=== PATIENT | female | born 1995 | race Caucasian/White ===

== ENCOUNTER 2017-01-26 12:17 | Emergency (ER) | payer OTHER ==
[2017-01-26 12:44] VITALS: BP 137/83; RESP 18; TEMP 98.4
--- NOTE | 2017-01-26 15:53 | ED ---
Psych HPI - General Chief Complaint: Psychiatric Symptoms Stated Complaint: Mental Health Time Seen by Provider: 01/26/17 13:01 Source: patient Mode of arrival: ambulatory - History of Present Illness Initial Comments: Patient states that she needs a psychiatric evaluation. She has a history of bipolar. She denies any homicidal or suicidal ideation. She states that she is currently . Patient has not tried to hurt herself. She has not taken an overdose of medication. She has no chest pain, belly pain, back pain, weakness or trouble walking. - Related Data Home Medications Medication Instructions Recorded Confirmed No Known Home Medications [No 01/26/17 01/26/17 Known Home Medications] Allergies Allergy/AdvReac Type Severity Reaction Status Date / Time amoxicillin Allergy Unknown Verified 01/26/17 13:43 kiwi Allergy Unknown Verified 01/26/17 13:43 lithium Allergy Unknown Verified 01/26/17 13:43 methylphenidate Allergy Unknown Verified 01/26/17 13:43 [From Ritalin] Penicillins Allergy Unknown Verified 01/26/17 13:43 Beef Containing Products AdvReac Verified 01/26/17 13:43 [Beef] Pork/Porcine Containing AdvReac Verified 01/26/17 13:43 Products [Pork] Review of Systems ROS Statement: Those systems with pertinent positive or pertinent negative responses have been documented in the HPI. ROS Other: All systems not noted in ROS Statement are negative. Past Medical History Past Medical History: No Reported History History of Any Multi-Drug Resistant Organisms: None Reported Past Surgical History: No Surgical Hx Reported Past Psychological History: Anxiety, Bipolar, Depression Smoking Status: Never smoker Past Alcohol Use History: None Reported Past Drug Use History: None Reported General Exam Limitations: no limitations General appearance: alert, in no apparent distress Head exam: Present: atraumatic, normocephalic, normal inspection Eye exam: Present: normal appearance, PERRL, EOMI. Absent: scleral icterus, conjunctival injection, periorbital swelling ENT exam: Present: normal exam, mucous membranes moist Neck exam: Present: normal inspection. Absent: tenderness, meningismus, lymphadenopathy Respiratory exam: Present: normal lung sounds bilaterally. Absent: respiratory distress, wheezes, rales, rhonchi, stridor Cardiovascular Exam: Present: regular rate, normal rhythm, normal heart sounds. Absent: systolic murmur, diastolic murmur, rubs, gallop, clicks GI/Abdominal exam: Present: soft, normal bowel sounds. Absent: distended, tenderness, guarding, rebound, rigid Extremities exam: Present: normal inspection, full ROM, normal capillary refill. Absent: tenderness, pedal edema, joint swelling, calf tenderness Back exam: Present: normal inspection Neurological exam: Present: alert, oriented X3, CN II-XII intact Psychiatric exam: Present: normal affect, normal mood Skin exam: Present: warm, dry, intact, normal color. Absent: rash Course Vital Signs 01/26/17 12:40 Temperature 98.4 F Pulse Rate 89 Respiratory 18 Rate Blood Pressure 137/83 O2 Sat by Pulse 100 Oximetry Medical Decision Making - Medical Decision Making Patient is requesting psychiatric evaluation. Her physical exam is benign. Vital signs are normal. Patient was a valid by psychiatry. They do not feel she is a danger to herself or anybody else. She is stable for outpatient follow -up. Disposition Clinical Impression: Bipolar disorder Disposition: HOME SELF-CARE Condition: Good Instructions: Bipolar Disorder (ED) Time of Disposition: 15:53
[2017-01-26 16:18] VITALS: PULSE 88
== END 2017-01-26 16:18 | disposition home or self-care (01) ==
LOC: EC 12:17
DX: F31.9 Bipolar disorder, unspecified (principal); F41.9 Anxiety disorder, unspecified; Z88.0 Allergy status to penicillin; Z91.018 Allergy to other foods; Z88.8 Allergy status to other drugs, medicaments and biological substances
CPT/HCPCS: 82075; 99284

== ENCOUNTER 2018-02-27 13:46 | Emergency (ER) | payer OTHER ==
[2018-02-27 14:05] VITALS: RESP 18
--- NOTE | 2018-02-27 15:04 | ED ---
General Adult HPI - General Chief complaint: Chest Pain Stated complaint: Chest pain/lightheaded Time Seen by Provider: 02/27/18 14:56 Source: patient, RN notes reviewed, old records reviewed Mode of arrival: ambulatory Limitations: no limitations - History of Present Illness Initial comments: 22 female presenting for evaluation of left-sided chest pain. Patient's pain is sharp and intermittent in nature. Patient denies pain with movement. Pain is been present for the past one month. Patient attributes her pain to a side effect from her implantable control which was placed approximately 6 weeks ago. She states she does have some dyspnea associated with this pain. She is able to point to one spot where it hurts and according to her it is tender in this location. Pain is sharp and lasts 3-5 minutes with each episode occurring approximately 5 times daily. No abdominal pain, no nausea vomiting or diarrhea. No symptoms in between episodes. - Related Data Home Medications Medication Instructions Recorded Confirmed Ziprasidone [Geodon] 40 mg PO HS 02/27/18 02/27/18 Previous Rx's Medication Instructions Recorded Ibuprofen [Motrin] 600 mg PO Q8HR PRN #24 tab 02/27/18 Allergies Allergy/AdvReac Type Severity Reaction Status Date / Time amoxicillin Allergy Unknown Verified 02/27/18 14:20 kiwi Allergy Unknown Verified 02/27/18 14:20 lithium Allergy Unknown Verified 02/27/18 14:20 methylphenidate Allergy Unknown Verified 02/27/18 14:20 [From Ritalin] Penicillins Allergy Unknown Verified 02/27/18 14:20 Beef Containing Products AdvReac Unknown Verified 02/27/18 14:20 [Beef] Childhood Pork/Porcine Containing AdvReac Unknown Verified 02/27/18 14:20 Products [Pork] Review of Systems ROS Statement: Those systems with pertinent positive or pertinent negative responses have been documented in the HPI. ROS Other: All systems not noted in ROS Statement are negative. Past Medical History Past Medical History: No Reported History History of Any Multi-Drug Resistant Organisms: None Reported Past Surgical History: No Surgical Hx Reported Past Psychological History: Anxiety, Bipolar, Depression Smoking Status: Never smoker Past Alcohol Use History: None Reported Past Drug Use History: None Reported General Exam Limitations: no limitations General appearance: alert, in no apparent distress Head exam: Present: atraumatic, normocephalic Eye exam: Present: normal appearance, PERRL ENT exam: Present: normal exam Neck exam: Present: normal inspection. Absent: tenderness, meningismus Respiratory exam: Present: normal lung sounds bilaterally, chest wall tenderness (Left anterior chest wall tenderness). Absent: respiratory distress , wheezes Cardiovascular Exam: Present: regular rate, normal rhythm GI/Abdominal exam: Present: soft. Absent: distended, tenderness Extremities exam: Present: normal inspection, normal capillary refill. Absent: pedal edema, calf tenderness Neurological exam: Present: alert, oriented X3, CN II-XII intact. Absent: motor sensory deficit Psychiatric exam: Present: normal affect, normal mood Skin exam: Present: warm, dry, intact. Absent: cyanosis, diaphoretic Course Vital Signs 02/27/18 14:03 Temperature 98.4 F Pulse Rate 89 Respiratory 18 Rate Blood Pressure 157/90 O2 Sat by Pulse 98 Oximetry EKG Findings - EKG Comments: EKG Findings:: EKG: Sinus rhythm with sinus arrhythmia, ventricular rate 69, [place] interval 148, QRS duration 90, QTC 424, no signs of ischemia Medical Decision Making - Medical Decision Making 22-year-old female presenting with sharp left-sided chest pain. Pain is reproducible on exam. EKG nonischemic. Laboratory studies reveal normal CBC, normal CMP, troponin and d-dimer are negative. Chest x-ray negative for acute findings. Patient will be treated with Motrin. She will follow-up with primary care physician and return with worsening or changing symptoms. - Lab Data Result diagrams: 02/27/18 14:53 02/27/18 14:53 Lab Results 02/27/18 02/27/18 02/27/18 Range/Units 14:53 14:53 14:53 WBC 7.2 (3.8-10.6) k/uL RBC 4.82 (3.80-5.40) m/uL Hgb 13.5 (11.4-16.0) gm/dL Hct 39.0 (34.0-46.0) % MCV 81.0 (80.0-100.0) fL MCH 28.0 (25.0-35.0) pg MCHC 34.5 (31.0-37.0) g/dL RDW 12.4 (11.5-15.5) % Plt Count 252 (150-450) k/uL Neutrophils % 53 % Lymphocytes % 39 % Monocytes % 5 % Eosinophils % 1 % Basophils % 1 % Neutrophils # 3.8 (1.3-7.7) k/uL Lymphocytes # 2.8 (1.0-4.8) k/uL Monocytes # 0.4 (0-1.0) k/uL Eosinophils # 0.1 (0-0.7) k/uL Basophils # 0.0 (0-0.2) k/uL D-Dimer (<0.60) mg/L FEU Sodium 138 (137-145) mmol/L Potassium 4.1 (3.5-5.1) mmol/L Chloride 102 (98-107) mmol/L Carbon Dioxide 21 L (22-30) mmol/L Anion Gap 15 mmol/L BUN 11 (7-17) mg/dL Creatinine 0.68 (0.52-1.04) mg/dL Est GFR (CKD-EPI)AfAm >90 (>60 ml/min/1.73 sqM) Est GFR (CKD-EPI)NonAf >90 (>60 ml/min/1.73 sqM) Glucose 81 (74-99) mg/dL Calcium 9.6 (8.4-10.2) mg/dL Total Bilirubin 0.7 (0.2-1.3) mg/dL AST 13 L (14-36) U/L ALT 21 (9-52) U/L Alkaline Phosphatase 47 (38-126) U/L Total Creatine Kinase 72 (30-135) U/L CK-MB (CK-2) 0.4 (0.0-2.4) ng/mL CK-MB (CK-2) Rel Index 0.6 Troponin I <0.012 (0.000-0.034) ng/mL Total Protein 7.1 (6.3-8.2) g/dL Albumin 4.6 (3.5-5.0) g/dL Urine HCG, Qual (Not Detectd) 02/27/18 02/27/18 Range/Units 14:53 15:01 WBC (3.8-10.6) k/uL RBC (3.80-5.40) m/uL Hgb (11.4-16.0) gm/dL Hct (34.0-46.0) % MCV (80.0-100.0) fL MCH (25.0-35.0) pg MCHC (31.0-37.0) g/dL RDW (11.5-15.5) % Plt Count (150-450) k/uL Neutrophils % % Lymphocytes % % Monocytes % % Eosinophils % % Basophils % % Neutrophils # (1.3-7.7) k/uL Lymphocytes # (1.0-4.8) k/uL Monocytes # (0-1.0) k/uL Eosinophils # (0-0.7) k/uL Basophils # (0-0.2) k/uL D-Dimer <0.17 (<0.60) mg/L FEU Sodium (137-145) mmol/L Potassium (3.5-5.1) mmol/L Chloride (98-107) mmol/L Carbon Dioxide (22-30) mmol/L Anion Gap mmol/L BUN (7-17) mg/dL Creatinine (0.52-1.04) mg/dL Est GFR (CKD-EPI)AfAm (>60 ml/min/1.73 sqM) Est GFR (CKD-EPI)NonAf (>60 ml/min/1.73 sqM) Glucose (74-99) mg/dL Calcium (8.4-10.2) mg/dL Total Bilirubin (0.2-1.3) mg/dL AST (14-36) U/L ALT (9-52) U/L Alkaline Phosphatase (38-126) U/L Total Creatine Kinase (30-135) U/L CK-MB (CK-2) (0.0-2.4) ng/mL CK-MB (CK-2) Rel Index Troponin I (0.000-0.034) ng/mL Total Protein (6.3-8.2) g/dL Albumin (3.5-5.0) g/dL Urine HCG, Qual Not Detected (Not Detectd) Disposition Clinical Impression: Costalchondritis Disposition: HOME SELF-CARE Condition: Good Instructions: Costochondritis (ED) Prescriptions: Ibuprofen [Motrin] 600 mg PO Q8HR PRN #24 tab PRN Reason: Pain Is patient prescribed a controlled substance at d/c from ED?: No Referrals: Francisco Whitfield MD [Primary Care Provider] - 1-2 days Time of Disposition: 16:05
[2018-02-27 15:15] LABS: ALT 21 U/L (9-52); AST 13 U/L (14-36); Albumin 4.6 g/dL (3.5-5.0); Alkaline Phosphatase 47 U/L (38-126); Anion Gap 15 mmol/L; Blood Urea Nitrogen 11 mg/dL (7-17); Calcium 9.6 mg/dL (8.4-10.2); Carbon Dioxide 21 mmol/L (22-30); Chloride 102 mmol/L (98-107); Glucose 81 mg/dL (74-99); Potassium 4.1 mmol/L (3.5-5.1); Sodium 138 mmol/L (137-145); Total Bilirubin 0.7 mg/dL (0.2-1.3); Total Protein 7.1 g/dL (6.3-8.2)
[2018-02-27 15:17] LABS: Basophils % (A) 1 %; Eosinophils # (A) 0.1 k/uL (0-0.7); Eosinophils % (A) 1 %; HGB 13.5 gm/dL (11.4-16.0); Lymphocytes # (A) 2.8 k/uL (1.0-4.8); Lymphocytes % (A) 39 %; MCHC 34.5 g/dL (31.0-37.0); Mean Platelet Volume 8.9; Monocytes # (A) 0.4 k/uL (0-1.0); Monocytes % (A) 5 %; Neutrophils # (A) 3.8 k/uL (1.3-7.7); Neutrophils % (A) 53 %; Platelet Count 252 k/uL (150-450); RBC 4.82 m/uL (3.80-5.40); RDW 12.4 % (11.5-15.5); WBC 7.2 k/uL (3.8-10.6)
[2018-02-27 15:27] LABS: Creatine Kinase 72 U/L (30-135)
--- NOTE | 2018-02-27 15:32 | XR ---
EXAMINATION TYPE: XR chest 2V DATE OF EXAM: 02/27/2018 COMPARISON: NONE HISTORY: Chest pain TECHNIQUE: Frontal and lateral views of the chest are obtained. FINDINGS: There is no focal air space opacity, pleural effusion, or pneumothorax seen. The cardiac silhouette size is within normal limits. Suspect mild spinal curvature. The osseous structures are i ntact. IMPRESSION: No acute cardiopulmonary process.
[2018-02-27 15:39] LABS: Creatine Kinase MB 0.4 ng/mL (0.0-2.4); Troponin I <0.012 ng/mL (0.000-0.034)
[2018-02-27 16:15] VITALS: BP 118/75; PULSE 93; TEMP 97.2
== END 2018-02-27 16:14 | disposition home or self-care (01) ==
LOC: EC 13:46
DX: M94.0 Chondrocostal junction syndrome [Tietze] (principal); F31.9 Bipolar disorder, unspecified; Z88.0 Allergy status to penicillin; Z88.8 Allergy status to other drugs, medicaments and biological substances; Z91.018 Allergy to other foods; Z91.048 Other nonmedicinal substance allergy status; Z79.899 Other long term (current) drug therapy
CPT/HCPCS: 36415; 71046; 80053; 81025; 82550; 82553; 84484; 85025; 85379; 93005; 99285

== ENCOUNTER 2019-02-03 16:37 | Emergency (ER) | payer OTHER ==
[2019-02-03 16:45] VITALS: RESP 18
--- NOTE | 2019-02-03 17:02 | ED ---
General Adult HPI - General Chief complaint: Extremity Injury, Lower Stated complaint: Ankle Injury Time Seen by Provider: 02/03/19 16:47 Source: patient Mode of arrival: ambulatory Limitations: no limitations - History of Present Illness Initial comments: Dictation was produced using [employer] dictation software. please excuse any gramma tical, word or spelling errors. Chief Complaint: 23-year-old female presents with chief complaint of left ankle pain. History of Present Illness: Patient 23-year-old female. She states that several hours earlier today she twisted her ankle. She states she twisted her ankle after her foot got caught under a broomstick. Patient states that her leg feels like it twisted. Patient was an Sun[place] after the incident. She is concerned that maybe she fractured her ankle. She reports tenderness to the posterior heel and his fibula. She is 27 weeks . The ROS documented in this emergency department record has been reviewed and confirmed by me. Those systems with pertinent positive or negative responses have been documented in the HPI. All other systems are other negative and/or noncontributory. PHYSICAL EXAM: General Impression: Alert and oriented x3, not in acute distress HEENT: Normocephalic atraumatic, extra-ocular movements intact, pupils equal and reactive to light bilaterally, mucous membranes moist. Cardiovascular: Heart regular rate and rhythm, S1&S2 audible, no murmurs, rubs or gallops Chest: Lungs clear to auscultation bilaterally, no rhonchi, no wheeze, no rales Abdomen: Bowel sounds present, abdomen soft, non-tender, non-distended, no organomegaly Musculoskeletal: Pulses present and equal in all extremities, no peripheral edema Left ankle: Tenderness to palpation of the distal fibular tip and distal insertion site of the Achilles, no ecchymoses Motor: no focal deficits noted Neurological: CN II-XII grossly intact, no focal motor or sensory deficits noted Skin: Intact with no visualized rashes Psych: Normal affect and mood ED course: 23-year-old female presents with left ankle pain. Patient is 27 weeks . Upon arrival are within acceptable limits. Ankle x-ray is unremarkable. Patient able to ambulate however with slight limp. Patient clinical presentation consistent with ankle sprain. Patient told to rest ice and elevate the left lower extremity. Patient told to take Tylenol when necessary pain. She is otherwise advised to follow-up with primary care physician upon discharge. - Related Data Home Medications Medication Instructions Recorded Confirmed Cae-[id number]-[id number] Acid 1 cap PO DAILY 02/03/19 02/03/19 [-U Capsule (formulary)] Allergies Allergy/AdvReac Type Severity Reaction Status Date / Time amoxicillin Allergy Unknown Verified 02/03/19 17:19 kiwi Allergy Unknown Verified 02/03/19 17:19 lithium Allergy Unknown Verified 02/03/19 17:19 methylphenidate Allergy Unknown Verified 02/03/19 17:19 [From Ritalin] Penicillins Allergy Unknown Verified 02/03/19 17:19 Beef Containing Products AdvReac Unknown Verified 02/03/19 17:19 [Beef] Childhood Pork/Porcine Containing AdvReac Unknown Verified 02/03/19 17:19 Products [Pork] Review of Systems ROS Statement: Those systems with pertinent positive or pertinent negative responses have been documented in the HPI. ROS Other: All systems not noted in ROS Statement are negative. Past Medical History Past Medical History: No Reported History Additional Past Medical History / Comment(s): patient is supposed to get a breast biopsy with Dr. Infante 02-14-19 History of Any Multi-Drug Resistant Organisms: None Reported Past Surgical History: No Surgical Hx Reported Past Psychological History: Anxiety, Bipolar, Depression Smoking Status: Never smoker Past Alcohol Use History: None Reported Past Drug Use History: None Reported General Exam Limitations: no limitations Course Vital Signs 02/03/19 16:42 Temperature 98.3 F Pulse Rate 77 Respiratory 18 Rate Blood Pressure 125/77 O2 Sat by Pulse 99 Oximetry Disposition Clinical Impression: Ankle sprain Disposition: HOME SELF-CARE Condition: Good Instructions (If sedation given, give patient instructions): Ankle Sprain (ED) Is patient prescribed a controlled substance at d/c from ED?: No Referrals: Francisco Whitfield MD [Primary Care Provider] - 1-2 days Time of Disposition: 17:43
--- NOTE | 2019-02-03 17:34 | XR ---
Left ankle HISTORY: Trauma and pain 3 views of the left ankle Bone mineralization, joint spaces and alignment are maintained. There is mild soft tissue swelling. IMPRESSION: No fracture or dislocation.
[2019-02-03 17:59] VITALS: BP 109/81; PULSE 89; TEMP 98.8
== END 2019-02-03 17:59 | disposition home or self-care (01) ==
LOC: EC 16:37
DX: O9A.212 Injury, poisoning and certain other consequences of external causes complicating pregnancy, second trimester (principal); S93.402A Sprain of unspecified ligament of left ankle, initial encounter; Z88.0 Allergy status to penicillin; Z88.8 Allergy status to other drugs, medicaments and biological substances; Z91.018 Allergy to other foods; Z3A.27 27 weeks gestation of pregnancy; X50.1XXA Overexertion from prolonged static or awkward postures, initial encounter
CPT/HCPCS: 99283

== ENCOUNTER → 2019-02-14 | Outpatient (CLI) | payer OTHER ==
[2019-02-14 14:00] VITALS: BP 118/67; PULSE 66; RESP 16; TEMP 97.4; BMI 24.0
--- NOTE | 2019-02-14 14:25 | P.GSHP ---
History of Present Illness H&P Date: 02/14/19 Chief Complaint: breast pain The patient is a 23 year old white female, who is 29 week . She noted the a swelling in her left breast about months ago. At that time she also had bloody nipple discharge, and redness and pain of her left breast. She was treated with antibiotics and the bloody discharge and redness resolved. The pain which had been a 8 is now rated as a 3. The pain in intermittent. The patient had an ultrasound performed on . The ultrasound revealed a diffuse heterogenicity over the area of concern. The patient states the swelling is improved, but has not gone away. She was treated for what was believed to be a nonlactating mastitis. She did not have any fever or chills. She took clindamycin. The patient does not drink any caffeinated beverages. She does not smoke is not exposed to secondhand smoke. And she does not eat large quantities of chocolate. She had no trauma to the breast. She has had no surgery to the breast. She lost 150 pounds from the age of 16. Family History: mother: leukemia maternal aunt: of breast cancer at 35 paternal uncle: prostate Hormonal History: menarche: 9 3 pregnancies, one miscarriage, presently 29 weeks , first live at the age of 21, breast fed: Negative 29 weeks BCP: 3 months hormones: none Past medical history: 1. Bipolar Past surgical history: 1. 2. Ankle and knee surgery Social History: smoke: none alcohol: none drugs: none - Constitutional Constitutional: Denies chills, Denies fever - EENT Comment: wears glasses Eyes: denies blurred vision, denies pain Ears: deny: decreased hearing, tinnitus Ears, nose, mouth and throat: Denies headache, Denies sore throat - Breasts Breasts: bilateral: as per HPI - Cardiovascular Cardiovascular: Denies chest pain, Denies shortness of breath - Respiratory Respiratory: Denies cough, Denies 7 - Gastrointestinal Gastrointestinal: Reports constipation, Reports nausea, Denies abdominal pain, Denies diarrhea, Denies vomiting - Genitourinary (Female) Genitourinary: Denies dysuria, Denies hematuria - Menstruation Comment: - Musculoskeletal Musculoskeletal: Denies myalgias - Integumentary Integumentary: Denies pruritus, Denies rash - Neurological Neurological: Denies numbness, Denies weakness - Psychiatric Comment: PTSD, bipolar Psychiatric: Reports anxiety, Reports depression - Endocrine Endocrine: Denies fatigue, Denies weight change - Hematologic/Lymphatic Comment: none - Allergic/Immunologic Comment: PCN, amoxicillin, kiwi, lithium, adderol, methylphenidate Past Medical History Past Medical History: No Reported History Additional Past Medical History / Comment(s): patient is supposed to get a breast biopsy with Dr. Infante 02-14-19 History of Any Multi-Drug Resistant Organisms: None Reported Past Surgical History: No Surgical Hx Reported Past Psychological History: Anxiety, Bipolar, Depression Smoking Status: Never smoker Past Alcohol Use History: None Reported Past Drug Use History: None Reported Medications and Allergies Home Medications Medication Instructions Recorded Confirmed Type Kdg-[id number]-Govbx Acid 1 cap PO DAILY 02/03/19 02/03/19 History [-U Capsule (formulary)] Allergies Allergy/AdvReac Type Severity Reaction Status Date / Time amoxicillin Allergy Unknown Verified 02/03/19 17:19 kiwi Allergy Unknown Verified 02/03/19 17:19 lithium Allergy Unknown Verified 02/03/19 17:19 methylphenidate Allergy Unknown Verified 02/03/19 17:19 [From Ritalin] Penicillins Allergy Unknown Verified 02/03/19 17:19 Beef Containing Products AdvReac Unknown Verified 02/03/19 17:19 [Beef] Childhood Pork/Porcine Containing AdvReac Unknown Verified 02/03/19 17:19 Products [Pork] Surgical - Exam - General obese - Eyes normal ocular movement - ENT no hearing loss, no congestion - Neck no masses, trachea midline - Respiratory normal respiratory effort, clear to auscultation - Cardiovascular Rhythm: regular Heart Sounds: normal: S1, S2 - Abdomen gravid uterus Abdomen: soft, non tender, no guarding, no rigid, no rebound - Integumentary no abnormal pigmentation - Neurologic no disoriented, no combative - Musculoskeletal normal gait, normal posture - Psychiatric oriented to time, oriented to person, oriented to place, speech is normal, memory intact breast exam: right breast: Multi-positional exam fibrocystic changes/changes of no dominant masses or nodules of concern, no nipple discharge of concern Right axilla: No adenopathy of concern Left breast: Multi-positional exam no dominant masses or nodules of concern, changes of , fibrocystic changes, no discrete dominant masses or nodules of concern Left axilla: Tenderness to palpation but no discrete adenopathy of concern, family speech appears to be somewhat diffuse which was also identified on ultrasound Results Ultrasound results reviewed Assessment and Plan Assessment: Impression: 1. Left breast fullness/mastitis resolved 2. Left axillary fullness related to probable mastitis 3. 29 weeks 4. Bipolar 5. Resolved nonlactating mastitis 6. Mastodynia largely resolved The patient is a 23-year-old white female who has been treated for nonlactating mastitis. She is a good treatment resolution with the clindamycin. An ultrasound had been performed which revealed an area of heterogenicity in the left axilla and for which biopsy was recommended. The patient will be recommended to undergo ultrasound-guided core biopsy of the left axillary abnormal tissue. It may be that since the mastitis has largely resolved with we will not find anything and she will not have to have the biopsy performed. Plan: 1. Repeat left axillary ultrasound with core biopsy of lesion of concern identified 2. Continued treatment of prior medical legal investigator 3. Medical management of medical conditions 4. Follow-up after ultrasound-guided biopsy CC: Jasvir Rodriguez
== END | disposition home or self-care (01) ==
LOC: WWCWWP 13:39
PROVIDERS: ATTEND Surgery
DX: Z53.9 Procedure and treatment not carried out, unspecified reason (principal)

== ENCOUNTER 2019-02-28 09:00 | Day surgery (SDC) | payer OTHER ==
[2019-02-28 09:46] VITALS: BP 117/56; PULSE 79; RESP 18; TEMP 98.1
--- NOTE | 2019-02-28 11:59 | US ---
Discontinued axillary biopsy HISTORY: Left axillary swelling Ultrasound performed of the left axilla. A discrete mass was not identified. IMPRESSION: Discontinued biopsy. No discrete mass was identified. Follow-up as indicated, manage roslyn ent clinically. Consider lipoma, MRI with overlying marker could be performed for increased character ization.
== END 2019-02-28 10:22 | disposition home or self-care (01) ==
LOC: RADPROMAIN 09:00
PROVIDERS: ATTEND Surgery
DX: R59.9 Enlarged lymph nodes, unspecified (principal); Z53.8 Procedure and treatment not carried out for other reasons; R92.8 Other abnormal and inconclusive findings on diagnostic imaging of breast; Z80.3 Family history of malignant neoplasm of breast
CPT/HCPCS: 76536

== ENCOUNTER 2020-07-10 15:07 | Emergency (ER) | payer OTHER ==
[2020-07-10 15:25] VITALS: RESP 18; TEMP 98.3
[2020-07-10] MEDS ORDERED: SODIUM CHLORIDE 0.9% 1,000 ML IV ONE (16:06)
[2020-07-10 16:37] LABS: Basophils # (A) 0.1 k/uL (0-0.2); Basophils % (A) 1 %; Eosinophils # (A) 0.2 k/uL (0-0.7); Eosinophils % (A) 2 %; HCT 45.1 % (34.0-46.0); HGB 14.8 gm/dL (11.4-16.0); Lymphocytes # (A) 2.8 k/uL (1.0-4.8); Lymphocytes % (A) 39 %; MCH 27.7 pg (25.0-35.0); MCHC 32.8 g/dL (31.0-37.0); MCV 84.6 fL (80.0-100.0); Mean Platelet Volume 8.4; Monocytes # (A) 0.4 k/uL (0-1.0); Monocytes % (A) 5 %; Neutrophils # (A) 3.7 k/uL (1.3-7.7); Neutrophils % (A) 51 %; Platelet Count 240 k/uL (150-450); RBC 5.34 m/uL (3.80-5.40); RDW 12.8 % (11.5-15.5); WBC 7.1 k/uL (3.8-10.6)
[2020-07-10 16:53] LABS: Amorphous Sediment,Urine Rare /hpf; Appearance,Urine Cloudy (Clear); Bilirubin,Urine Negative (Negative); Blood,Urine Moderate (Negative); Color,Urine Yellow; Glucose,Urine (UA) Negative (Negative); Ketones,Urine Negative (Negative); Leukocyte Esterase,Urine Small (Negative); Nitrite,Urine Negative (Negative); Protein,Urine Negative (Negative); RBC,Urine 124 /hpf (0-5); Specific Gravity,Urine 1.019 (1.001-1.035); Urobilinogen,Urine <2.0 mg/dL (<2.0); WBC,Urine 12 /hpf (0-5)
--- NOTE | 2020-07-10 17:14 | US ---
EXAMINATION TYPE: US transvaginal DATE OF EXAM: 07/10/2020 COMPARISON: NONE CLINICAL HISTORY: retained products. Bleeding had baby x 1 month ago TECHNIQUE: Transvaginal (TV). EXAM MEASUREMENTS: Uterus: 8.5 x 5.4 x 7.4 cm Endometrial Stripe: .7 cm Right Ovary: 3.6 x 1.6 x 1.3 cm cm Left Ovary: 2.2 x 1.4 x 1.4 cm 1. Uterus: Anteverted wnl 2. Endometrium: wnl 3. Right Ovary: wnl 4. Left Ovary: wnl Spectral, color and waveform doppler imaging shows good arterial and venous flow within the ovaries ; there is no evidence for ovarian torsion. 5. Bilateral Adnexa: wnl 6. Posterior cul-de-sac: wnl No retained products visualized. IMPRESSION: Uterus is empty. No adnexal mass or free fluid. No evidence of ovarian torsion. Normal endometrium.
[2020-07-10 17:18] LABS: ALT 18 U/L (4-34); AST 39 U/L (14-36); African American GFR (CKD) >90 (>60 ml/min/1.73 sqM); Albumin 4.6 g/dL (3.5-5.0); Alkaline Phosphatase 80 U/L (38-126); Anion Gap 13 mmol/L; Blood Urea Nitrogen 19 mg/dL (7-17); Calcium 9.5 mg/dL (8.4-10.2); Carbon Dioxide 18 mmol/L (22-30); Chloride 109 mmol/L (98-107); Glucose 91 mg/dL (74-99); Non-African American GFR(CKD) >90 (>60 ml/min/1.73 sqM); Potassium 5.2 mmol/L (3.5-5.1); Sodium 140 mmol/L (137-145); Total Bilirubin 0.8 mg/dL (0.2-1.3); Total Protein 7.4 g/dL (6.3-8.2)
--- NOTE | 2020-07-10 18:14 | ED ---
General Adult HPI - General Chief complaint: Vaginal Bleeding Stated complaint: Sent by OB Time Seen by Provider: 07/10/20 15:33 Source: patient, RN notes reviewed Mode of arrival: ambulatory Limitations: no limitations - History of Present Illness Initial comments: 24-year-old female presents to the emergency room for a chief complaint of vaginal discharge. Patient reports she had a 4 weeks ago at [facility]. Patient reports that she has had some light bleeding since that time. However about a week ago patient started to get some discharge. States the discharge has a foul odor. Patient did see her doctor and was treated for a p ossible wound infection. States the wound infection has improved however this discharge remains. Patient denies fevers. Denies any significant pain. Does state the area is sore since her surgery. The patient does have an appointment with her [facility] on Monday.Patient has no other complaints at this time including shortness of breath, chest pain, abdominal pain, nausea or vomiting, headache, or visual changes. - Related Data Home Medications Medication Instructions Recorded Confirmed [id number] Acid 1 cap PO DAILY 02/03/19 02/28/19 [-U Capsule (formulary)] Previous Rx's Medication Instructions Recorded metroNIDAZOLE [Flagyl] 500 mg PO BID 7 Days #14 tab 07/10/20 Allergies Allergy/AdvReac Type Severity Reaction Status Date / Time amoxicillin Allergy Unknown Verified 07/10/20 15:24 kiwi Allergy Unknown Verified 07/10/20 15:24 lithium Allergy Unknown Verified 07/10/20 15:24 methylphenidate Allergy Unknown Verified 07/10/20 15:24 [From Ritalin] Penicillins Allergy Unknown Verified 07/10/20 15:24 Beef Containing Products AdvReac Unknown Verified 07/10/20 15:24 [Beef] Childhood Pork/Porcine Containing AdvReac Unknown Verified 07/10/20 15:24 Products [Pork] Review of Systems ROS Statement: Those systems with pertinent positive or pertinent negative responses have been documented in the HPI. ROS Other: All systems not noted in ROS Statement are negative. Past Medical History Past Medical History: No Reported History Additional Past Medical History / Comment(s): saw Dr. Infante 02-14-19 for breast exam. edc 05/02/19 History of Any Multi-Drug Resistant Organisms: None Reported Past Surgical History: Section, Orthopedic Surgery Additional Past Surgical History / Comment(s): rt ankle, rt knee Past Anesthesia/Blood Transfusion Reactions: No Reported Reaction, Family History of Problems w/ Anesthesia Additional Past Anesthesia/Blood Transfusion Reaction / Comment(s): dad- mediterranean thalassemia. pt states that she does not carry this gene Past Psychological History: Anxiety, Bipolar, Depression Past Alcohol Use History: None Reported Past Drug Use History: None Reported - Past Family History Father Family Medical History: Blood Disorder Additional Family Medical History / Comment(s): mediterranean thalassemia Mother Family Medical History: Cancer Additional Family Medical History / Comment(s): leukemia with metastais now General Exam Limitations: no limitations General appearance: alert, in no apparent distress Head exam: Present: atraumatic, normocephalic, normal inspection Eye exam: Present: normal appearance, PERRL, EOMI. Absent: scleral icterus, conjunctival injection, periorbital swelling ENT exam: Present: normal exam, mucous membranes moist Neck exam: Present: normal inspection. Absent: tenderness, meningismus, lymphadenopathy Respiratory exam: Present: normal lung sounds bilaterally. Absent: respiratory distress, wheezes, rales, rhonchi, stridor Cardiovascular Exam: Present: regular rate, normal rhythm, normal heart sounds. Absent: systolic murmur, diastolic murmur, rubs, gallop, clicks GI/Abdominal exam: Present: soft, normal bowel sounds. Absent: distended, tenderness, guarding, rebound, rigid External exam: Present: normal external exam. Absent: erythema, swelling, lesions, lacerations, ecchymosis Speculum exam: Present: vaginal discharge (Very slight grayish vaginal discharge) By manual exam: Present: normal by manual exam. Absent: cervical motion tenderness, adnexal tenderness, adnexal mass, uterine enlargement, uterine tenderness Course Vital Signs 07/10/20 15:21 Temperature 98.3 F Pulse Rate 68 Respiratory 18 Rate Blood Pressure 113/77 O2 Sat by Pulse 100 Oximetry Medical Decision Making - Medical Decision Making Vitals are stable. CBC CMP is unremarkable. Urinalysis shows red blood cells which is likely related to vaginal bleeding. Ultrasound shows an empty uterus without adnexal mass or free fluid. There is normal endometrium. No retained products visualized. Given no fever, normal white count, normal ultrasound I do not suspect retained products. Possible bacterial vaginosis. Patient will be treated with Flagyl. Patient does not breast feed. However did recommend that if she develops abdominal pain or fever she needs to return to the emergency room. Otherwise she should follow-up with her doctor at her appointment on Monday. - Lab Data Result diagrams: 07/10/20 16:20 07/10/20 16:20 Lab Results 07/10/20 07/10/20 07/10/20 Range/Units 16:20 16: 16:20 WBC 7.1 (3.8-10.6) k/uL RBC 5.34 (3.80-5.40) m/uL Hgb 14.8 (11.4-16.0) gm/dL Hct 45.1 (34.0-46.0) % MCV 84.6 (80.0-100.0) fL MCH 27.7 (25.0-35.0) pg MCHC 32.8 (31.0-37.0) g/dL RDW 12.8 (11.5-15.5) % Plt Count 240 (150-450) k/uL Neutrophils % 51 % Lymphocytes % 39 % Monocytes % 5 % Eosinophils % 2 % Basophils % 1 % Neutrophils # 3.7 (1.3-7.7) k/uL Lymphocytes # 2.8 (1.0-4.8) k/uL Monocytes # 0.4 (0-1.0) k/uL Eosinophils # 0.2 (0-0.7) k/uL Basophils # 0.1 (0-0.2) k/uL Sodium 140 (137-145) mmol/L Potassium 5.2 H (3.5-5.1) mmol/L Chloride 109 H (98-107) mmol/L Carbon Dioxide 18 L (22-30) mmol/L Anion Gap 13 mmol/L BUN 19 H (7-17) mg/dL Creatinine 0.67 (0.52-1.04) mg/dL Est GFR (CKD-EPI)AfAm >90 (>60 ml/min/1.73 sqM) Est GFR (CKD-EPI)NonAf >90 (>60 ml/min/1.73 sqM) Glucose 91 (74-99) mg/dL Calcium 9.5 (8.4-10.2) mg/dL Total Bilirubin 0.8 (0.2-1.3) mg/dL AST 39 H (14-36) U/L ALT 18 (4-34) U/L Alkaline Phosphatase 80 (38-126) U/L Total Protein 7.4 (6.3-8.2) g/dL Albumin 4.6 (3.5-5.0) g/dL Urine Color Yellow Urine Appearance Cloudy H (Clear) Urine pH 8.0 (5.0-8.0) Ur Specific [place] 1.019 (1.001-1.035) Urine Protein Negative (Negative) Urine Glucose (UA) Negative (Negative) Urine Ketones Negative (Negative) Urine Blood Moderate H (Negative) Urine Nitrite Negative (Negative) Urine Bilirubin Negative (Negative) Urine Urobilinogen <2.0 (<2.0) mg/dL Ur Leukocyte Esterase Small H (Negative) Urine RBC 124 H (0-5) /hpf Urine WBC 12 H (0-5) /hpf Amorphous Sediment Rare H (None) /hpf Disposition Clinical Impression: Vaginal discharge Disposition: HOME SELF-CARE Condition: Good Instructions (If sedation given, give patient instructions): Vaginal Discharge (ED) Additional Instructions: Please take antibiotic as directed. Please follow-up with your doctor at your appointment on Monday. Return to the emergency room for any worsening symptoms which include severe abdominal pain or fevers. Prescriptions: metroNIDAZOLE [Flagyl] 500 mg PO BID 7 Days #14 tab Is patient prescribed a controlled substance at d/c from ED?: No Referrals: Francisco Whitfield MD [Primary Care Provider] - 1-2 days Time of Disposition: 18:13
[2020-07-10 18:26] VITALS: BP 120/78; PULSE 72
== END 2020-07-10 18:26 | disposition home or self-care (01) ==
LOC: EC 15:07
DX: N89.8 Other specified noninflammatory disorders of vagina (principal); O90.89 Other complications of the puerperium, not elsewhere classified; Z88.0 Allergy status to penicillin; Z91.018 Allergy to other foods; Z88.8 Allergy status to other drugs, medicaments and biological substances
CPT/HCPCS: 36415; 76830; 80053; 81001; 85025; 87070; 87086; 93975; 96360; 99284

== ENCOUNTER 2024-04-24 17:17 | Inpatient (IN) | payer MEDICAID, OTHER ==
--- NOTE | 2024-04-24 18:55 | ED ---
General Adult HPI - General Source: patient, RN notes reviewed, old records reviewed Mode of arrival: ambulatory Limitations: no limitations <Shoaib Zazueta - Last Filed: 04/24/24 18:50> <Nik Mayfield - Last Filed: 04/25/24 02:47> - General Chief complaint: Psychiatric Symptoms Stated complaint: psych Time Seen by Provider: 04/24/24 18:37 - History of Present Illness Initial comments: 88-year-old female presents for evaluation of what she describes as "manic episode". Patient states she has bipolar depression. She had a stressful day taking care of her children. She had left home for a walk. She was [place] apparently [place] from her home [place] the fire station and crawls well. She does not remember these events or why she ended up there. She denies suicidal or homicidal ideation but states that she is not okay to go home. No physical complaints. (Shoaib Zazueta) - Related Data Home Medications Medication Instructions Recorded Confirmed Caffeine 200mg 200 mg PO DAILY 04/24/24 04/24/24 Calcium/Folate(Unknown Dose) 1 tab PO DAILY 04/24/24 04/24/24 Chamomile(Unknown Dose) 1 tab PO DAILY 04/24/24 04/24/24 Lavender(Unknown Dose) 1 tab PO DAILY 04/24/24 04/24/24 Multivitamins, Thera [Multivitamin 1 tab PO DAILY 04/24/24 04/24/24 (formulary)] Vitamin B Complex 1 cap PO DAILY 04/24/24 04/24/24 Allergies Allergy/AdvReac Type Severity Reaction Status Date / Time amoxicillin Allergy Unknown Verified 04/24/24 20:41 amphetamine [From Adderall] Allergy Unknown Verified 04/24/24 20:41 dextroamphetamine Allergy Unknown Verified 04/24/24 20:41 [From Adderall] kiwi Allergy Unknown Verified 04/24/24 20:41 lithium Allergy Unknown Verified 04/24/24 20:41 methylphenidate Allergy Unknown Verified 04/24/24 20:41 [From Ritalin] Penicillins Allergy Unknown Verified 04/24/24 20:41 Beef Containing Products AdvReac Unknown Verified 04/24/24 20:41 [Beef] Childhood Pork/Porcine Containing AdvReac Unknown Verified 04/24/24 20:41 Products [Pork] pine Allergy Unknown Uncoded 04/24/24 20:41 Review of Systems ROS Other: All systems not noted in ROS Statement are negative. <Shoaib Zazueta - Last Filed: 04/24/24 18:50> ROS Other: All systems not noted in ROS Statement are negative. <Nik Mayfield - Last Filed: 04/25/24 02:47> ROS Statement: Those systems with pertinent positive or pertinent negative responses have been documented in the HPI. Past Medical History Past Medical History: No Reported History Additional Past Medical History / Comment(s): saw Dr. Infante 02-14-19 for breast exam. edc 05/02/19 History of Any Multi-Drug Resistant Organisms: None Reported Past Surgical History: Section, Orthopedic Surgery Additional Past Surgical History / Comment(s): rt ankle, rt knee Past Anesthesia/Blood Transfusion Reactions: No Reported Reaction, Family History of Problems w/ Anesthesia Additional Past Anesthesia/Blood Transfusion Reaction / Comment(s): dad- mediterranean thalassemia. pt states that she does not carry this gene Past Psychological History: Anxiety, Bipolar, Depression Past Alcohol Use History: None Reported Past Drug Use History: None Reported - Past Family History Father Family Medical History: Blood Disorder Additional Family Medical History / Comment(s): mediterranean thalassemia Mother Family Medical History: Cancer Additional Family Medical History / Comment(s): leukemia with metastais now <Shoaib Zazueta - Last Filed: 04/24/24 18:50> General Exam Limitations: no limitations General appearance: alert, in no apparent distress, anxious Head exam: Present: atraumatic, normocephalic Eye exam: Present: normal appearance, PERRL ENT exam: Present: normal exam Neck exam: Present: normal inspection. Absent: tenderness, meningismus Respiratory exam: Present: normal lung sounds bilaterally. Absent: respiratory distress, wheezes Cardiovascular Exam: Present: regular rate, normal rhythm GI/Abdominal exam: Present: soft. Absent: distended Extremities exam: Present: normal inspection, normal capillary refill Neurological exam: Present: alert, oriented X3 Psychiatric exam: Absent: homicidal ideation, suicidal ideation Skin exam: Present: warm, dry, intact <Shoaib Zazueta - Last Filed: 04/24/24 18:50> Course <Shoaib Zazueta - Last Filed: 04/24/24 18:50> Vital Signs 04/24/24 17:18 Temperature 97.6 F Pulse Rate 78 Respiratory 18 Rate Blood Pressure 123/89 O2 Sat by Pulse 99 Oximetry - Reevaluation(s) Reevaluation #1: 04/24/24 18:52 Cleared for EPS (Shoaib Zazueta) Medical Decision Making <Shoaib Zazueta - Last Filed: 04/24/24 18:50> - Lab Data Result diagrams: 04/24/24 21:54 04/24/24 21:54 <Nik Mayfield - Last Filed: 04/25/24 02:47> - Medical Decision Making Was pt. sent in by a medical professional or institution (, ADOLFO, ACCOUNTS OFFICER, urgent care, hospital, or penitentiary...) When possible be specific @ -No Did you speak to anyone other than the patient for history (EMS, parent, family, police, friend...)? What history was obtained from this source @ -No Did you review nursing and triage notes (agree or disagree)? Why? @ -I reviewed and agree with nursing and triage notes Were old charts reviewed (outside hosp., previous admission, EMS record, old EKG, old radiological studies, urgent care reports/EKG's, penitentiary records)? Report findings @ -No old charts were reviewed Differential Mental Health Depression, anxiety, bipolar, psychosis, schizophrenia, borderline personality, situational depression, adjustment disorder, behavioral disorder, brain tumor, malingering, substance abuse, encephalopathy, medication reaction, dementia, hypothyroidism, degenerative neurologic disorder, lupus.... This is not meant to be all-inclusive list EKG interpreted by me (3pts min.). @ -As above X-rays interpreted by me (1pt min.). @ -None done CT interpreted by me (1pt min.). @ -None done U/S interpreted by me (1pt. min.). @ -None done What testing was considered but not performed or refused? (CT, X-rays, U/S, labs)? Why? @ -None What meds were considered but not given or refused? Why? @ -None Did you discuss the management of the patient with other professionals (professionals i.e. , ADOLFO, ACCOUNTS OFFICER, lab, RT, psych nurse, social worker palliative care, applied researcher, teacher, juvenile probation officer, sample case porter)? Give summary @ -No Was smoking cessation discussed for >3mins.? @ -No Was critical care preformed (if so, how long)? @ -No Were there social determinants of health that impacted care today? How? (Homelessness, low income, unemployed, alcoholism, drug addiction, transportation, low edu. Level, literacy, decrease access to med. care, half-way, rehab)? @ -No Was there de-escalation of care discussed even if they declined (Discuss DNR or withdrawal of care, Hospice)? DNR status @ -No What co-morbidities impacted this encounter? (DM, HTN, Smoking, COPD, CAD, Cancer, CVA, ARF, Chemo, Hep., AIDS, mental health diagnosis, sleep apnea, morbid obesity)? @ -[Bipolar depression Was patient admitted / discharged? Hospital course, mention meds given and route, prescriptions, significant lab abnormalities, going to OR and other pertinent info. @ -Cleared for EPS evaluation awaiting disposition. Signed out to oncoming physician. (Shoaib Zazueta) Patient is a 28-year-old female who presents emergency department complaining of psychiatric complaints. Was medically cleared by previous provider. She does have a history of bipolar depression. Has what she describes as a "manic episo de". Also was making statements that if she goes home she may kill multiple people. Was pending EPS evaluation. EPS Judith evaluated the patient and does believe patient requires inpatient admission. I am in agreement this plan. Patient was petitioned by EPS and clinical certificate was completed by myself. Diagnosis/symptom? @ -Homicidal ideation, psychosis Acute, or Chronic, or Acute on Chronic? @ -Acute Uncomplicated (without systemic symptoms) or Complicated (systemic symptoms)? @ -Complicated Side effects of treatment? @ -None Exacerbation, Progression, or Severe Exacerbation] @ -No Poses a threat to life or bodily function? @ -Yes Diagnosis/symptom? @ -Bipolar disorder Acute, or Chronic, or Acute on Chronic? @ -Chronic Uncomplicated (without systemic symptoms) or Complicated (systemic symptoms)? @ -Complicated Side effects of treatment? @ -None Exacerbation, Progression, or Severe Exacerbation] @ -No Poses a threat to life or bodily function? @ -Unlikely (Nik Mayfield) - Lab Data Lab Results 04/24/24 04/24/2404/24/24 Range/Units 20:29 21:54 21:54 WBC 10.2 (3.8-10.6) k/uL RBC 5.53 H (3.80-5.40) m/uL Hgb 13.1 (11.4-16.0) gm/dL Hct 42.1 (34.0-46.0) % MCV 76.0 L (80.0-100.0) fL MCH 23.6 L (25.0-35.0) pg MCHC 31.1 (31.0-37.0) g/dL RDW 13.3 (11.5-15.5) % Plt Count 243 (150-450) k/uL MPV 9.6 Neutrophils % 60 % Lymphocytes % 31 % Monocytes % 5 % Eosinophils % 1 % Basophils % 1 % Neutrophils # 6.2 (1.3-7.7) k/uL Lymphocytes # 3.2 (1.0-4.8) k/uL Monocytes # 0.6 (0-1.0) k/uL Eosinophils # 0.1 (0-0.7) k/uL Basophils # 0.1 (0-0.2) k/uL Sodium 140 (137-145) mmol/L Potassium 3.9 (3.5-5.1) mmol/L Chloride 105 (98-107) mmol/L Carbon Dioxide 26 (22-30) mmol/L Anion Gap 9 mmol/L BUN 15 (7-17) mg/dL Creatinine 0.68 (0.52-1.04) mg/dL Est GFR (CKD-EPI)AfAm >90 (>60 ml/min/1.73 sqM) Est GFR (CKD-EPI)NonAf >90 (>60 ml/min/1.73 sqM) Glucose 85 (74-99) mg/dL Calcium 9.6 (8.4-10.2) mg/dL Total Bilirubin 0.5 (0.2-1.3) mg/dL AST 17 (14-36) U/L ALT 13 (4-34) U/L Alkaline Phosphatase 43 (38-126) U/L Total Protein 7.6 (6.3-8.2) g/dL Albumin 4.9 (3.5-5.0) g/dL Urine Opiates Screen Not Detected (NotDetected) Ur Oxycodone Screen Not Detected (NotDetected) Urine Methadone Screen Not Detected (NotDetected) Ur Barbiturates Screen Not Detected (NotDetected) U Tricyclic Antidepress Not Detected (NotDetected) Ur Phencyclidine Scrn Not Detected (NotDetected) Ur Amphetamines Screen Not Detected (NotDetected) U Methamphetamines Scrn Not Detected (NotDetected) U Benzodiazepines Scrn Not Detected (NotDetected) Urine Cocaine Screen Not Detected (NotDetected) U Marijuana (THC) Screen Not Detected (NotDetected) SARS-CoV-2 (PCR) (Not Detectd) 04/24/24 Range/Units 21:54 WBC (3.8-10.6) k/uL RBC (3.80-5.40) m/uL Hgb (11.4-16.0) gm/dL Hct (34.0-46.0) % MCV (80.0-100.0) fL MCH (25.0-35.0) pg MCHC (31.0-37.0) g/dL RDW (11.5-15.5) % Plt Count (150-450) k/uL MPV Neutrophils % % Lymphocytes % % Monocytes % % Eosinophils % % Basophils % % Neutrophils # (1.3-7.7) k/uL Lymphocytes # (1.0-4.8) k/uL Monocytes # (0-1.0) k/uL Eosinophils # (0-0.7) k/uL Basophils # (0-0.2) k/uL Sodium (137-145) mmol/L Potassium (3.5-5.1) mmol/L Chloride (98-107) mmol/L Carbon Dioxide (22-30) mmol/L Anion Gap mmol/L BUN (7-17) mg/dL Creatinine (0.52-1.04) mg/dL Est GFR (CKD-EPI)AfAm (>60 ml/min/1.73 sqM) Est GFR (CKD-EPI)NonAf (>60 ml/min/1.73 sqM) Glucose (74-99) mg/dL Calcium (8.4-10.2) mg/dL Total Bilirubin (0.2-1.3) mg/dL AST (14-36) U/L ALT (4-34) U/L Alkaline Phosphatase (38-126) U/L Total Protein (6.3-8.2) g/dL Albumin (3.5-5.0) g/dL Urine Opiates Screen (NotDetected) Ur Oxycodone Screen (NotDetected) Urine Methadone Screen (NotDetected) Ur Barbiturates Screen (NotDetected) U Tricyclic Antidepress (NotDetected) Ur Phencyclidine Scrn (NotDetected) Ur Amphetamines Screen (NotDetected) U Methamphetamines Scrn (NotDetected) U Benzodiazepines Scrn (NotDetected) Urine Cocaine Screen (NotDetected) U Marijuana (THC) Screen (NotDetected) SARS-CoV-2 (PCR) Not Detected (Not Detectd) Disposition <Shoaib Zazueta - Last Filed: 04/24/24 18:50> Time of Disposition: 21:49 <Nik Mayfield - Last Filed: 04/25/24 02:47> Clinical Impression: Bipolar disorder, Psychosis, Homicidal ideation Disposition: TRANSFER TO PSYCH HOSP/UNIT Condition: Stable Referrals: None,Stated [Primary Care Provider] - 1-2 days
[2024-04-24 21:33] LABS: Amphetamine Screen,Urine Not Detected (NotDetected); Barbiturate Screen,Urine Not Detected (NotDetected); Benzodiazepines Screen,Urine Not Detected (NotDetected); Cocaine Screen,Urine Not Detected (NotDetected); Methadone Screen, Urine Not Detected (NotDetected); Opiate Screen,Urine Not Detected (NotDetected); Oxycodone Screen, Urine Not Detected (NotDetected); Phencyclidine Screen,Urine Not Detected (NotDetected); Tricyclic Antidepressant,Urine Not Detected (NotDetected); Urn Cannabinoid Scrn Not Detected (NotDetected)
[2024-04-24 22:17] LABS: Basophils # (A) 0.1 k/uL (0-0.2); Basophils % (A) 1 %; Eosinophils # (A) 0.1 k/uL (0-0.7); Eosinophils % (A) 1 %; HCT 42.1 % (34.0-46.0); HGB 13.1 gm/dL (11.4-16.0); Lymphocytes # (A) 3.2 k/uL (1.0-4.8); Lymphocytes % (A) 31 %; MCH 23.6 pg (25.0-35.0); MCHC 31.1 g/dL (31.0-37.0); Mean Platelet Volume 9.6; Monocytes # (A) 0.6 k/uL (0-1.0); Monocytes % (A) 5 %; Neutrophils # (A) 6.2 k/uL (1.3-7.7); Neutrophils % (A) 60 %; Platelet Count 243 k/uL (150-450); RBC 5.53 m/uL (3.80-5.40); RDW 13.3 % (11.5-15.5); WBC 10.2 k/uL (3.8-10.6)
[2024-04-24 22:29] LABS: ALT 13 U/L (4-34); AST 17 U/L (14-36); African American GFR (CKD) >90 (>60 ml/min/1.73 sqM); Albumin 4.9 g/dL (3.5-5.0); Alkaline Phosphatase 43 U/L (38-126); Anion Gap 9 mmol/L; Blood Urea Nitrogen 15 mg/dL (7-17); Calcium 9.6 mg/dL (8.4-10.2); Carbon Dioxide 26 mmol/L (22-30); Chloride 105 mmol/L (98-107); Glucose 85 mg/dL (74-99); Non-African American GFR(CKD) >90 (>60 ml/min/1.73 sqM); Potassium 3.9 mmol/L (3.5-5.1); Sodium 140 mmol/L (137-145); Total Bilirubin 0.5 mg/dL (0.2-1.3); Total Protein 7.6 g/dL (6.3-8.2)
[2024-04-25 15:24] LABS: Appearance,Urine Clear (Clear); Bilirubin,Urine Negative (Negative); Blood,Urine Negative (Negative); Color,Urine Yellow; Glucose,Urine (UA) Negative (Negative); Ketones,Urine 1+ (Negative); Leukocyte Esterase,Urine Negative (Negative); Nitrite,Urine Negative (Negative); Protein,Urine Trace (Negative); Specific Gravity,Urine 1.025 (1.001-1.035); Urobilinogen,Urine <2.0 mg/dL (<2.0)
[2024-04-25] MEDS ORDERED: LORazepam 2 MG/ML INJ IM PRN (18:11)
[2024-04-25] MEDS ORDERED: MAGNESIUM HYDROXIDE 2,400 MG/30 ML CUP PO PRN (18:11)
[2024-04-25] MEDS ORDERED: haloperidoL 5 MG TAB PO PRN (18:11)
[2024-04-25] MEDS ORDERED: MAG HYDROX/AL HYDROX/SIMETH 355 ML BOTTLE PO PRN (18:11)
[2024-04-25] MEDS ORDERED: HALOPERIDOL LACTATE 5 MG/ML 1 ML VIAL IM PRN (18:11)
[2024-04-25] MEDS ORDERED: ACETAMINOPHEN TAB 325 MG TAB PO PRN (18:11)
[2024-04-25 21:30] LABS: Appearance,Urine Clear (Clear); Bacteria,Urine Rare /hpf; Bilirubin,Urine Negative (Negative); Blood,Urine Negative (Negative); Color,Urine Colorless; Glucose,Urine (UA) Negative (Negative); Ketones,Urine Negative (Negative); Leukocyte Esterase,Urine Small (Negative); Nitrite,Urine Negative (Negative); Protein,Urine Negative (Negative); RBC,Urine 3 /hpf (0-5); Specific Gravity,Urine 1.002 (1.001-1.035); Squamous Epithelial Cell,Urine 6 /hpf (0-4); Urobilinogen,Urine <2.0 mg/dL (<2.0); WBC,Urine 9 /hpf (0-5)
[2024-04-26 08:37] LABS: Chol/HDL Ratio 2.43 Ratio; LDL Cholesterol,Calculated 69.9 mg/dL (0.0-131.0); VLDL Calculation 11.24 mg/dL (5.00-40.00)
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
[2024-04-26] MEDS: ZIPRASIDONE 20 MG CAP PO SCH (20:41)
--- NOTE | 2024-04-27 18:56 | P.PN ---
Progress Note - Text Progress Note Date: 04/27/24 Interval History: Patient was seen wandering the hallways and was directable and agreeable to sp eak with lyric writer bedside. patient is pleasant on interaction and states that her mood is "fine". She reports tolerating the medication well and is agreeable with increasing the dose tonight. She states that she has not been feeling elevated and is able to explain her thoughts linearly. She endorses good sleep last night but reports having a headache this morning. She endorses fear appetite and denies any other concerns. At this time patient denies any suicidal or homicidal ideations, intent or plan. Patient denies any auditory, visual hallucinations and denies any paranoia or delusions. Patient denies any side effects from the medications and has been compliant with meds. Mental Status Exam: Alert and attentive. Orientation times three Dressed and Groomed: Appropriately. Pleasant and cooperative. Psychomotor Activity: Normal. Speech: Normal in tone, quality, and quantity. Mood: I am fine. Affect: Appropriate. SI or HI: None. Perceptual disturbance: None. Thought Content: No paranoia or other delusional thinking noted. Thought Process: Normal. Cognition: Intact Judgment and Insight: Fair. Assessment Bipolar disorder Plan: -Patient continues to meet criteria for inpatient psychiatric admission for symptom stabilization and safety. -Medications: increase Geodon to 40 mg at bedtime -When necessary Ativan and Haldol for agitation/aggression. -NRT - not needed -SW on board for discharge planning. Encouraged the patient to participate in milieu.
[2024-04-27] MEDS: LORazepam 1 MG TAB PO PRN (20:52)
[2024-04-27] MEDS: ZIPRASIDONE 40 MG CAP PO SCH (20:52)
--- NOTE | 2024-04-28 13:13 | P.PN ---
Progress Note - Text Progress Note Date: 04/28/24 Interval History: Patient was seen wandering the hallways and was directable and agreeable to sp najma with junior copywriter in the office. Patient discusses the situation leading to hospitalization including overwhelming stress at home with taking care of her children. However, she is quite fond of them and discusses their needs today. She states the prior hospitalizations she attempted to reach to set up with [facility] but was told that she would have to call back after May 02. She is hopeful that upon discharge here, she'll be able to be set up with appointment at [facility] to aid with continued care. She states that since being on Geodon, she has noticed that her mood has been more stable. She denies any other mood concerns and says she has been feeling "good ". She reports good sleep and appetite. She denies other concerns. She endorses fear energy. She would like to be continued on Geodon. At this time patient denies any suicidal or homicidal ideations, intent or plan. Patient denies any auditory, visual hallucinations and denies any paranoia or delusions. Patient denies any side effects from the medications and has been compliant with meds. Mental Status Exam: Alert and attentive. Orientation times three Dressed and Groomed: Appropriately. Pleasant and cooperative. Psychomotor Activity: Normal. Speech: Normal in tone, quality, and quantity. Mood: I am good. Affect: Appropriate. SI or HI: None. Perceptual disturbance: None. Thought Content: No paranoia or other delusional thinking noted. Thought Process: Normal. Cognition: Intact Judgment and Insight: Fair. Assessment Bipolar disorder Plan: -Patient continues to meet criteria for inpatient psychiatric admission for symptom stabilization and safety. -Medications: Geodon 40 mg after dinner -When necessary Ativan and Haldol for agitation/aggression. -NRT - not needed -SW on board for discharge planning. Encouraged the patient to participate in milieu. CM to help with [facility] f/u
[2024-04-28] MEDS: ZIPRASIDONE 40 MG CAP PO SCH (18:00)
[2024-04-29 07:17] VITALS: BP 100/61; PULSE 69; RESP 14; TEMP 98
--- NOTE | 2024-04-29 09:55 | P.MDCNMH ---
History of Present Illness H&P Date: 04/29/24 Patient is a 28-year-old female with history of bipolar disorder currently in mental health unit. [facility] physicians consulted for medical management. Labs reviewed from admission, WBC 10.2, hemoglobin 13.1, MCV 76, creatinine 0.68, total cholesterol 138, LDL 69.9, TSH 1.68, urinalysis negative for leukocyte esterase and nitrites, urine toxicology negative, COVID-negative. Vital signs r eviewed, within normal limits, currently on room air. Patient denies any chest pain, shortness of breath, abdominal pain, nausea, vomiting, urinary or bowel complaints. Pertinent positives and negatives as discussed in HPI, a complete review of systems was performed and all other systems are negative. Patient seen and examined at bedside. Vital signs reviewed General: nontoxic, no distress, appears at stated age Derm: warm, dry Head: atraumatic, normocephalic, symmetric Eyes: EOMI, no lid lag, anicteric sclera, pupils equal round reactive to light ENT: Nose and ears atraumatic Neck: No thyromegaly, supple Mouth: no lip lesion, mucus membranes moist Cardiovascular: S1S2 reg, no murmur, no edema Lungs: clear to auscultation bilateral, no rhonchi, no rales, no wheeze, no accessory muscle use Abdominal: soft, nontender to palpation, no guarding, no appreciable organomegaly Ext: no gross muscle atrophy, muscle strength muscle strength 5 out of 5 in all 4 extremities, no contractures Neuro: CN II-XII grossly intact Psych: Alert, oriented, appropriate affect Assessment/Plan: Microcytosis, asymptomatic -Does not have any anemia -Iron studies ordered -Has family history of thalassemia Bipolar disorder -On Haldol as needed to oral, and IM as needed, oral and IM Ativan as needed for agitation -Also on Geodon 40 mg daily -Managed by psychiatry -Possible seizure, no prior history, outpatient follow-up with neurology Thank you for allowing us to participate in the care of this pleasant patient. Do not hesitate to contact us with questions. Someone can be reached from the [facility] Physicians hospitalist group all hours of the day at [phone] or via [employer]. Past Medical History Past Medical History: No Reported History Additional Past Medical History / Comment(s): saw Dr. Infante 02-14-19 for breast exam. edc 05/02/19 History of Any Multi-Drug Resistant Organisms: None Reported Past Surgical History: Section, Orthopedic Surgery Additional Past Surgical History / Comment(s): 3 C Sections, rt ankle & rt knee "at 5-7 years old" per pt. Past Anesthesia/Blood Transfusion Reactions: No Reported Reaction, Family History of Problems w/ Anesthesia Additional Past Anesthesia/Blood Transfusion Reaction / Comment(s): dad- mediterranean thalassemia. pt states that she does not carry this gene Past Psychological History: Anxiety, Bipolar, Depression Smoking Status: Never smoker Past Alcohol Use History: None Reported Past Drug Use History: None Reported - Past Family History Father Family Medical History: Blood Disorder Additional Family Medical History / Comment(s): mediterranean thalassemia Mother Family Medical History: Cancer Additional Family Medical History / Comment(s): leukemia with metastais now Medications and Allergies Home Medications Medication Instructions Recorded Confirmed Type Calcium/Folate(Unknown Dose) 1 tab PO DAILY 04/24/24 04/25/24 History Multivitamins, Thera [Multivitamin 1 tab PO DAILY 04/24/24 04/25/24 History (formulary)] Vitamin B Complex 1 cap PO DAILY 04/24/24 04/25/24 History Ziprasidone [Geodon] 40 mg PO W/SUPPER 15 Days #15 cap 04/29/24 Rx Allergies Allergy/AdvReac Type Severity Reaction Status Date / Time amoxicillin Allergy Unknown Verified 04/25/24 19:54 amphetamine [From Adderall] Allergy Unknown Verified 04/25/24 19:54 dextroamphetamine Allergy Unknown Verified 04/25/24 19:54 [From Adderall] kiwi Allergy Unknown Verified 04/25/24 19:54 lithium Allergy Unknown Verified 04/25/24 19:54 methylphenidate Allergy Unknown Verified 04/25/24 19:54 [From Ritalin] Penicillins Allergy Unknown Verified 04/25/24 19:54 Beef Containing Products AdvReac Unknown Verified 04/25/24 19:54 [Beef] Childhood Pork/Porcine Containing AdvReac Unknown Verified 04/25/24 19:54 Products [Pork] pine Allergy Unknown Uncoded 04/25/24 19:54 Physical Exam Vitals: Vital Signs Temp Pulse Resp BP Pulse Ox 04/29/24 07:00 98 F 69 14 100/61 99 Cranial Nerve Examination - Cranial Nerves Cranial Nerve II- Optic: Intact Cranial Nerve III- Oculomotor: Intact Cranial Nerve IV- Trochlear: Intact Cranial Nerve V- Trigeminal: Intact Cranial Nerve - Abducens: Intact Cranial Nerve VII- Facial: Intact Cranial Nerve VIII- Auditory: Intact Cranial Nerve IX- Glossopharyngeal: Intact Cranial Nerve X- Vagus: Intact Cranial Nerve XI- Accessory: Intact Cranial Nerve XII- Hypoglossal: Intact Results CBC & Chem 7: 04/24/24 21:54 04/24/24 21:54
[2024-04-29 15:54] LABS: % Iron Saturation 6.46 (12.00-45.00); Ferritin 5.4 ng/mL (10.0-291.0)
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
--- NOTE | 2024-04-29 22:07 | P.PN ---
Progress Note - Text Progress Note Date: 04/29/24 Follow-up Mediation Review (Telephonic med review) Chief Complaint: I am doing fine Subjective: The patient noted that she is doing fine. She wanted to confirm time of her medication. The patient was informed. She has no other issues. The patient is spending time coloring and doing cross word puzzles. She is also attending all the [facility] activities. She participating well in the [facility] activities. Her interaction with staff and peers is good. No behavioral issues noted since yesterday. Leading questions: The patient denied Depression and Anxiety. Denied SI or HI. Denied symptoms consistent with psychosis Sleep and Appetite: Fine. Change in family/ living/job/financial/daily routine: No change. Change in medical condition: No change. Change in medications: No change. Side effects from Medications: None. Allergies: No change. Objective- MSE: Alert and attentive. Orientation times three. Dressed and Groomed: Appropriately. Pleasant and cooperative. Psychomotor Activity: Normal. Speech: Normal in tone, quality, and quantity. Mood: I am doing good Affect: Appropriate SI or HI: None. Perceptual disturbance: None. Thought Content: No paranoia or other delusional thinking noted. Thought Process: Normal. Cognition: Intact Judgment and Insight: Good AIMS: Normal. Labs: No new labs. Diagnosis: H/O bipolar disorder R/O Partial complex Seizures R/O conversion Disorder. Plan and Recommendations: Continue current Medications. Monitor MS and side effects of medications and adjust medications accordingly. Provide supportive psychotherapy. The patient to attend [facility] activities. Medication Consent with explanation of risk/benefits and side effects: Explained and obtained.
== END 2024-04-29 15:21 | disposition home or self-care (01) | DRG 753 ==
LOC: EC 17:17 → 3MHU 04-25 18:00
PROVIDERS: ADMIT Psychiatry & Neurology Psychiatry; ATTEND Psychiatry & Neurology Psychiatry
DX: F31.10 Bipolar disorder, current episode manic without psychotic features, unspecified (principal); R45.850 Homicidal ideations; Z11.52 Encounter for screening for COVID-19; F41.9 Anxiety disorder, unspecified; R71.8 Other abnormality of red blood cells; Z79.899 Other long term (current) drug therapy; Z88.0 Allergy status to penicillin; Z88.8 Allergy status to other drugs, medicaments and biological substances
CPT/HCPCS: 36415; 80053; 80061; 80306; 81001; 81003; 81025; 82075; 82728; 83036; 83540; 83550; 84443; 84466; 85025; 87635; 99285